=== PATIENT | male | born 1955 | race Caucasian/White ===

== ENCOUNTER → 2024-07-13 | Outpatient (CLI) | payer MEDICARE ==
[~2024-07-13] MED LIST: BASAGLAR K100 UNIT/1 SQ; COZAAR 25MG25 MG/TAB PO; INSULIN LI100 UNIT/2 SQ; Iohexol 300 - 100 ML VIAL IV ONE; JARDIANCE25 PO; LIPITOR 40MG TA40 MG PO; NS 100 ML IV SCH; SILVADENE CREAM1 TU TP
== END ==
LOC: COL.RAD 13:58
DX: R91.8 Other nonspecific abnormal finding of lung field (principal); R59.0 Localized enlarged lymph nodes; C09.0 Malignant neoplasm of tonsillar fossa
CPT/HCPCS: Q9967